=== PATIENT | male | born 1945 | race Caucasian/White ===

== ENCOUNTER 2021-07-22 12:40 | Outpatient (CLI) | payer MEDICARE, OTHER ==
--- NOTE | 2021-07-22 18:23 | DEXA Report ---
PROCEDURE: Dexa Spine and/or Hip INDICATIONS: LONG STERM STEROID USE TECHNIQUE: Dual energy x-ray absorptiometry (DXA) was performed on a [employer] System. Regions measur ed are the AP Spine, femoral neck, and if needed forearm. COMPARISON: None. FINDINGS: Lumbar Spine: Bone Mineral Density 1.480 g/cm/cm,T score 2.2. Left Hip: Bone Mineral Density 0.989 g/cm/cm,T score -0.8. Left Femoral Neck: Bone Mineral Density 0.891 g/cm/cm, T score -1.4. (T score greater or equal to -1.0: NORMAL) (T score from -1.1 to -2.4: OSTEOPENIA) (T score less than or equal to -2.5 to: OSTEOPOROSIS) Impression: 1. Osteopenia. Patients with diagnosis of osteoporosis or osteopenia should have regular bone mineral density assess ment. For those eligible for Medicare, routine testing is allowed once every 2 years. Testing frequ ency can be increased for patients who have rapidly progressing disease or for those who are receivin g medical therapy to restore bone mass. Reviewed by: Everett Arambula MD on 07/22/2021 6:22 PM PDT Approved by: Everett Arambula MD on 07/22/2021 6:22 PM PDT Station ID: [id number]
== END 2021-07-22 12:41 | disposition home or self-care (01) ==
LOC: DI 12:40
PROVIDERS: ATTEND Internal Medicine
DX: M85.89 Other specified disorders of bone density and structure, multiple sites (principal); Z79.52 Long term (current) use of systemic steroids